=== PATIENT | female | born 2000 | race Caucasian/White ===

== ENCOUNTER 2024-08-20 15:53 | Outpatient (CLI) | payer SELFPAY ==
--- NOTE | 2024-08-20 15:30 | DI.RAD_ITS ---
Exam(s) XR ELBOW LT COMPLETE EXAM: XR ELBOW LT COMPLETE CLINICAL HISTORY: left elbow pain M25.522. TECHNIQUE: 2D digital imaging was performed. COMPARISON: No exams were available for comparison FINDINGS: 3 views No evidence of fracture or joint effusion and there is no swelling of the olecranon bursa. Radial he ad and neck unremarkable. Epicondyles unremarkable. Bone density normal. No osseous lesions IMPRESSION: No significant osseous findings in the elbow. DATA REPOSITORY: RADIATION DOSE DELIVERED:
--- NOTE | 2024-08-20 16:39 | DI.VRAD_ITS ---
PROCEDURE INFORMATION: Exam: XR Left Elbow Exam date and time: 08/20/2024 4:19 PM Age: 23 years old Clinical indication: Other: Fall, pain TECHNIQUE: Imaging protocol: Radiologic exam of the left elbow. Views: 3 or more views. COMPARISON: No relevant prior studies available. FINDINGS: Bones/joints: No acute fracture or dislocation. No suspicious osseous lesions. Articular structures unremarkable. No intra-articular effusion. Soft tissues: Soft tissues unremarkable. IMPRESSION: No acute findings. Dictated and Authenticated by: María Elena Barakat MD. Ordering:MIGUEL ANGEL Mcdowell MD
== END 2024-08-20 16:13 ==
PROVIDERS: Visit Provider Physician Assistant
DX: M25.522 Pain in left elbow (principal)
CPT/HCPCS: 73080

== ENCOUNTER 2025-06-04 01:32 | Emergency (ER) | payer SELFPAY ==
[2025-06-04 01:40] VITALS: BP 151/106; PULSE 107; RESP 20; O2SAT 100
--- NOTE | 2025-06-04 01:45 | RT.EKG_ITS ---
APPROVED REPORT Exam: Resting ECG Reason for Exam: overdose Patient Location: E HR:81 bpm ECG Measurements Heart Rate 81 AXIS GA 153 P 79 QRSd 102 QRS 79 QT 417 T 50 QTc 486 Conclusion Sinus rhythm...normal P axis, V-rate 60- 99 I have reviewed and interpreted ECG and agree with software generated interpretation.
[2025-06-04 01:57] VITALS: TEMP 36.8
--- NOTE | 2025-06-04 02:01 | ED.GENADUL_ITS ---
Discharge Plan Disposition Patient Disposition: Home Condition: Good Discharge Details Clinical Impression: Drug overdoses, Alcohol intoxication, Laceration of left forearm Primary Care Provider: Unknown,Unknown ED Provider: Peterson Arteaga Home Meds and New Rx's Prescriptions: No Action dextroamphetamine-amphetamine 20 mg capsule,extended release 24hr PO Patient Comments: take 1 capsule by mouth every morning escitalopram oxalate 10 mg tablet PO DAILY Patient Comments: take 1 tablet by mouth once daily phenazopyridine [Pyridium] 200 mg tablet 200 mg PO TID PRN (Reason: pain) Qty: 6 0RF Discharge Instructions Instructions: Accidental Overdose, Adult ED, Laceration Repair With Stitches ED Additional Instructions: Please abide by the safety plan that you have agreed upon in coordination with our mental health advocates. Please follow-up closely with your outpatient resources. At this time your lacerations have been sutured. Please keep the area clean and dry. Monitor closely for any redness, drainage or discharge. For nonabsorbable sutures, please return in 7 to 10 days to have the wound reassessed and the sutures removed. If you come back to the emergency department here it will be free of charge for the suture removal. For long-term scar cosmesis, please make sure to avoid any sun to the area for the next year. Apply moisturizer or vitamin E to the area twice daily for the next 12 months for the best chance of wound/scar medication. Please take a daily multivitamin as well as this can help in wound healing. If you notice any worsening of your symptoms, or any new symptoms such as vomiting, diarrhea, fever, chills, shortness of breath, chest pain, numbness, weakness, or fainting , please return immediately to the emergency department for reevaluation. Please follow up with your primary care provider as soon as possible for reassessment and reevaluation. As always, it was a pleasure participating in your medical care today. HPI General Date/Time Provider Initiated Documentation: 06/04/25 01:35 . HPI Narrative: 24-year-old female with a past medical history of depression, ADHD, presents today for evaluation of suicidal attempt. Patient states that last night about 45 minutes prior to arrival she had 4 drinks of vodka, and took 10 tablets roughly of her 10 mg Lexapro/escitalopram (100 mg total roughly). She then cut her left forearm somewhat deeply with a knife, as well as the left anterior thigh superficially. She states that she immediately regretted what she did, and she does not want to hurt herself or end her life. She came in tonight because it kept bleeding on her left forearm. She denies any other complaints at this time. She denies taking any other or additional medications. She denies attempting this in the past. She states that she has multiple stressors including being a single mom of 2 children. No other complaints at this time. She denies any auditory or visual hallucinations. No other modifying factors. Related Data Home Medications ?Medication ?Instructions ?Recorded ?Confirmed dextroamphetamine-amphetamine ER PO 08/20/24 08/20/24 20 mg 24hr capsule,extend release escitalopram oxalate 10 mg tablet mg PO DAILY 08/20/24 08/20/24 phenazopyridine 200 mg tablet 200 mg PO TID PRN pain 6 doses #6 08/20/24 08/20/24 (Pyridium) tabs Previous Rx's ?Medication ?Instructions ?Recorded phenazopyridine 200 mg tablet 200 mg PO TID PRN pain 6 doses #6 08/20/24 (Pyridium) tabs Allergies Allergy/AdvReac Type Severity Reaction Status Date / Time No Known Allergies Allergy Unverified 08/20/24 14:59 General Stated Complaint: PsychEval DEREJE: 2 Exam Narrative Exam Narrative: 1.Const: Well-nourished, Well-developed, appearing stated age 2.Eyes: PERRL, no conjunctival injection, and symmetrical lids. 3.ENT: Atraumatic external nose and ears. Moist MM. Neck: Symmetric, trachea midline, No thyromegaly. 4.CVS: +S1/S2, Peripheral pulses 2+ and equal in all extremities. Brisk capillary refill in all extremities. 5.RESP: Unlabored respiratory effort. Clear to auscultation bilaterally. No wheezes rales or rhonchi 6.GI: Soft, Nontender/Nondistended, No hepatosplenomegaly. No guarding or rebound. 7.MSK: Normocephalic/Atraumatic, Extremities w/o deformity or ttp No cyanosis or clubbing, Normal movement of all extremities 8.Skin: Left forearm demonstrates 2 deep and 1 superficial lacerations, each of the deep lacerations are roughly 3-1/2 to 4 cm. Superficial 1 is 3 cm. Patient's left anterior thigh demonstrates 3 superficial abrasions/lacerations, none of which require suturing, that are roughly 6 cm in width. No active bleeding 9.Neuro: interior specialist II-XII grossly intact. Sensation grossly intact, no focal neurologic deficits. 10.Psych: (AAO) x3. Appropriate mood and affect, but mildly intoxicated Course Vital Signs Vital signs: Vital Signs Pulse 107 H 06/04/25 01:40 Respiratory Rate 20 06/04/25 01:40 Blood Pressure 151/106 H 06/04/25 01:40 Pulse Oximetry 100 06/04/25 01:40 Temperature 36.8 C 06/04/25 01:57 Temperature Source Oral 06/04/25 01:57 Pulse 107 H 06/04/25 01:40 Respiratory Rate 20 06/04/25 01:40 Blood Pressure 151/106 H 06/04/25 01:40 Blood Pressure Position Sitting 06/04/25 01:40 Pulse Oximetry 100 06/04/25 01:40 Oxygen Delivery Method Room Air 06/04/25 01:40 Oxygen Flow Rate 0 06/04/25 01:40 Procedure Laceration Laceration 1: Date of Procedure: 06/04/25 Time of procedure: 03:24 Provider that performed the procedure: Peterson R Chandler Standard Time Out Performed: Yes Patient Consented: Verbally Site: upper extremity Side (If applicable): left Description: linear Depth: simple, single layer Local anesthetic: Lidocaine 1% Amount of anesthesia used (mL): 2 Pre-repair:: wound explored, irrigated extensively and deep structures intact Skin layer closed with: nylon Suture size: 5-0 Number of sutures:: 3 Technique: simple, interrupted Laceration 2: Date of Procedure: 06/04/25 Time of procedure: 03:25 Provider that performed the procedure: Peterson R Chandler Standard Time Out Performed: Yes Patient Consented: Verbally Site: upper extremity Side (If applicable): left Description: linear Depth: simple, single layer Local anesthetic: Lidocaine 1% Amount of anesthesia used (mL): 3 Pre-repair:: wound explored, irrigated extensively and deep structures intact Skin layer closed with: nylon Suture size: 5-0 Number of sutures:: 5 Technique: simple, interrupted Laceration 3: Date of Procedure: 06/04/25 Time of procedure: 03:26 Provider that performed the procedure: Peterson Arteaga Standard Time Out Performed: Yes Patient Consented: Verbally Site: upper extremity Side (If applicable): left Description: linear Depth: simple, single layer Amount of anesthesia used (mL): 2 Pre-repair:: wound explored, irrigated extensively and deep structures intact Skin layer closed with: nylon Suture size: 5-0 Number of sutures:: 5 Technique: simple, interrupted Medical Decision Making 24-year-old female with a past medical history of depression, ADHD, presents today for evaluation of suicidal attempt. Patient states that last night about 45 minutes prior to arrival she had 4 drinks of vodka, and took 10 tablets roughly of her 10 mg Lexapro/escitalopram (100 mg total roughly). She then cut her left forearm somewhat deeply with a knife, as well as the left anterior thigh superficially. She states that she immediately regretted what she did, and she does not want to hurt herself or end her life. She came in tonight because it kept bleeding on her left forearm. She denies any other complaints at this time. She denies taking any other or additional medications. She denies attempting this in the past. She states that she has multiple stressors including being a single mom of 2 children. No other complaints at this time. She denies any auditory or visual hallucinations. No other modifying factors. Exam demonstrates well-appearing female, Left forearm demonstrates 2 deep and 1 superficial lacerations, each of the deep lacerations are roughly 3-1/2 to 4 cm. Superficial 1 is 3 cm. Patient's left anterior thigh demonstrates 3 superficial abrasions/lacerations, none of which require suturing, that are roughly 6 cm in width. No active bleeding. We will confirm tetanus status, we will suture the lacerations. We did contact poison control, and patient did take a high dose of her Lexapro, but not high enough that we would expect to see any severe symptomatology to suggest serotonin syndrome. At this time she has no hyperreflexia, fever, or other significant abnormality aside from mild tachycardia. We will wait till the patient achieves sobriety, and then have her assessed by mental health. Will monitor closely and reassess. 7:35 AM Patient has been reassessed, she is feeling well. She is medically cleared at this stage, and shows no signs of significant alcohol intoxication, altered mental status, or significant effect from the escitalopram overdose. Patient continues to regret what happened, and he does not express any homicidal or suicidal ideations. Patient's lacerations were sutured, with 13 total sutures. Patient tolerated this well. We are pending mental health evaluation at this time. Patient will be signed out to my colleague for follow-up with them. PFSH All Active Problems (Updated 06/04/25 @ 07:40 by Peterson Arteaga DO) Laceration of left forearm (Acute) Alcohol intoxication (Acute) Drug overdoses (Acute) Medical History Proteinuria Fibroadenoma of left breast Vision problem WEARS GLASSES Surgical History LEFT KNEE SURGERY LEFT BREAST SURGERY Family History Mother Asthma Father Healthy adult on routine physical examination Other Diabetes paternal cousins Essential hypertension PGGM Heart disease PGGM Myocardial infarction PG Social History Smoking/Tobacco Use Status: Never Smoking risk assessment performed?: Yes Drug use: Never PAWSS Have you Been Recently Intoxicated or Drunk Within the Last 30 days?: Yes Have you Ever Experienced Previous Episodes of Alcohol Withdrawal?: No Have you ever Experienced Withdrawal Seizures?: No Have you ever Experienced Delirium Tremens(DT)s?: No Have you ever undergone Alcohol Rehabilitation Treatment (i.e, inpt ot outpatient treatment programs)?: No Have you ever Experienced Blackouts?: No Have you ever Combined Alcohol with other Downers within the last 90 days?: No Have you ever Combined Alcohol with any other Substance of Abuse during the last 90 days?: No Positive Blood Alcohol level on Presentation? [PCS.BAL]: No Evidence of Increased Autonomic Activity (i.e. HR>120, tremor, sweating, agitation, nausea)?: No Result: 1
[2025-06-04] MEDS: Lactated Ringers 1,000 ML 1000 ML IV (02:14)
[2025-06-04] MEDS: Lidocaine/Epinephri/Tetracaine Topical Gel 3 ML TP (02:14)
[2025-06-04 02:29] LABS: Glucose Negative (Negative)
[2025-06-04 02:31] LABS: Abs Immature Grans 0.02 10^3/uL (0.0-0.06); HCT 37.7 % (36.0-46.0); HGB 13.0 g/dL (11.2-15.7); Immature Grans % 0.2 %; MCH 31.0 pg (27.0-33.0); MCHC 34.5 % (32.0-36.0); MCV 90 fL (80-95); MPV 9.6 fL (8.0-11.0); Platelet Count 332 10^3/uL (130-400); RBC 4.19 10^6/uL (3.93-5.22); RDW 12.6 % (11.7-14.6); RDW-SD 41.7 fL; WBC 9.90 10^3/uL (4.4-10.8)
[2025-06-04 02:32] LABS: C & S Indicated? No; WBC Negative HPF (0-5)
[2025-06-04 02:53] LABS: Salicylate < 2.8 mg/dL (<2.8)
[2025-06-04 02:54] LABS: ALT 43 U/L (14-59); AST 40 U/L (15-37); Acetaminophen < 2 ug/mL (10-30); Albumin 4.4 g/dL (3.4-5.0); Alkaline Phosphatase 75 U/L (46-116); Anion Gap 11.5 mmol/L (3-11); BUN 11 mg/dL (7-18); Bilirubin, Total 0.7 mg/dL (0.2-1.0); CO2 26.5 mmol/L (21.0-32.0); Calcium 9.2 mg/dL (8.5-10.1); Chloride 97 mmol/L (98-107); Estimated GFR 79.68 (mL/min/1.73m2); Glucose 84 mg/dL (74-106); Potassium 3.5 mmol/L (3.5-5.1); Sodium 135 mmol/L (136-145); TSH (W/Ref FT4) 2.66 uIU/mL (0.36-3.74); Total Protein 7.9 g/dL (6.4-8.2)
[2025-06-04 02:55] LABS: Cannabinoids THC Negative (Negative); METHADONE URINE SCREEN Negative (Negative)
[2025-06-04 07:35] VITALS: BP 108/67; PULSE 71; RESP 18; O2SAT 98
--- NOTE | 2025-06-04 07:46 | ED.PSYCHBOAR ---
Date of service: 06/04/25 Time of Service: 07:46 Psychiatric Border Handoff Update Brief Story: 24-year-old female presented for self-harm multiple superficial self-inflicted lacerations, and intentional overdose of prescribed Lexapro. Psychiatric was treated medically cleared overnight. Currently pending behavioral health evaluation to determine disposition. Behavioral Concerns: Recent self-harm. Potential Disposition: Outpatient versus inpatient Barriers to Disposition: Bed search. Medical Concerns: None at this time Future to do Items: Follow-up with Maria Teresa for recommendations regarding disposition and management. Discharge Plan Disposition Patient Disposition: Home Condition: Good Discharge Details Clinical Impression: Drug overdoses, Alcohol intoxication, Laceration of left forearm Primary Care Provider: Unknown,Unknown ED Provider: Hector Restrepo Home Meds and New Rx's Prescriptions: No Action dextroamphetamine-amphetamine 20 mg capsule,extended release 24hr PO Patient Comments: take 1 capsule by mouth every morning escitalopram oxalate 10 mg tablet PO DAILY Patient Comments: take 1 tablet by mouth once daily phenazopyridine [Pyridium] 200 mg tablet 200 mg PO TID PRN (Reason: pain) Qty: 6 0RF Discharge Instructions Instructions: Accidental Overdose, Adult ED, Laceration Repair With Stitches ED Additional Instructions: Please abide by the safety plan that you have agreed upon in coordination with our mental health advocates. Please follow-up closely with your outpatient resources. At this time your lacerations have been sutured. Please keep the area clean and dry. Monitor closely for any redness, drainage or discharge. For nonabsorbable sutures, please return in 7 to 10 days to have the wound reassessed and the sutures removed. If you come back to the emergency department here it will be free of charge for the suture removal. For long-term scar cosmesis, please make sure to avoid any sun to the area for the next year. Apply moisturizer or vitamin E to the area twice daily for the next 12 months for the best chance of wound/scar medication. Please take a daily multivitamin as well as this can help in wound healing. If you notice any worsening of your symptoms, or any new symptoms such as vomiting, diarrhea, fever, chills, shortness of breath, chest pain, numbness, weakness, or fainting , please return immediately to the emergency department for reevaluation. Please follow up with your primary care provider as soon as possible for reassessment and reevaluation. As always, it was a pleasure participating in your medical care today. Course Consultations Consultation #1: Case discussed with behavioral health for present patient safety plan, cleared for discharge, follow-up with outpatient resources. Vital Signs Vital signs: Vital Signs Pulse 107 H 06/04/25 01:40 Respiratory Rate 20 06/04/25 01:40 Blood Pressure 151/106 H 06/04/25 01:40 Pulse Oximetry 100 06/04/25 01:40 Temperature 36.8 C 06/04/25 01:57 Temperature Source Oral 06/04/25 01:57 Pulse 71 06/04/25 07:35 Respiratory Rate 18 06/04/25 07:35 Blood Pressure 108/67 06/04/25 07:35 Blood Pressure Mean 80 06/04/25 07:35 Blood Pressure Position Sitting 06/04/25 01:40 Pulse Oximetry 98 06/04/25 07:35 Oxygen Delivery Method Room Air 06/04/25 07:35 Oxygen Flow Rate 0 06/04/25 07:35 Lab/Test Results Lab/Test Results: Laboratory Tests Range/Units 06/04/25 02:15 WBC (4.4-10.8) 10^3/uL 9.90 RBC (3.93-5.22) 10^6/uL 4.19 Hgb (11.2-15.7) g/dL 13.0 Hct (36.0-46.0) % 37.7 MCV (80-95) fL 90 MCH (27.0-33.0) pg 31.0 MCHC (32.0-36.0) % 34.5 RDW (11.7-14.6) % 12.6 Plt Count (130-400) 10^3/uL 332 MPV (8.0-11.0) fL 9.6 Immature Gran % % 0.2 Neutrophils % % 65.7 Lymphocytes % % 25.3 Monocytes % % 6.9 Eosinophils % % 1.6 Basophils % % 0.3 Nucleated RBC % (0.0-0.3) % 0.0 Absolute Neutrophils (1.2-6.7) 10^3/uL 6.51 Absolute Lymphocytes (1.2-3.4) 10^3/uL 2.50 Absolute Monocytes (0.1-0.8) 10^3/uL 0.68 Absolute Eosinophils (0.0-0.7) 10^3/uL 0.16 Absolute Basophils (0.0-0.2) 10^3/uL 0.03 VBG Lactate (<or=2.0) mmol/L 1.9 Sodium (136-145) mmol/L 135 L Potassium (3.5-5.1) mmol/L 3.5 Chloride (98-107) mmol/L 97 L Carbon Dioxide (21.0-32.0) mmol/L 26.5 Anion Gap (3-11) mmol/L 11.5 H BUN (7-18) mg/dL 11 Creatinine (0.55-1.02) mg/dL 1.0 Est GFR (CKD-EPI 2020) (mL/min/1.73m2) 79.68 Glucose (74-106) mg/dL 84 Calcium (8.5-10.1) mg/dL 9.2 Total Bilirubin (0.2-1.0) mg/dL 0.7 AST (15-37) U/L 40 H ALT (14-59) U/L 43 Alkaline Phosphatase (46-116) U/L 75 Total Protein (6.4-8.2) g/dL 7.9 Albumin (3.4-5.0) g/dL 4.4 TSH (0.36-3.74) uIU/mL 2.66 Urine Color (Yellow) Yellow Urine Clarity (Clear) Clear Urine pH (5-8) 7.0 Ur Specific [place] (1.005-1.025) 1.015 Urine Protein (Neg-Trace) mg/dL Negative Urine Ketones (Negative) mg/dL Negative Urine Blood (Negative) Moderate H Urine Nitrite (Negative) Negative Urine Bilirubin (Negative) Negative Urine Urobilinogen (Up to 0.2) mg/dL 0.2 Ur Leukocyte Esterase (Negative) Negative Urine RBC (0-2) HPF 3-5 H Urine WBC (0-5) HPF Negative Ur Epithelial Cells (Negative) HPF Rare Urine Crystals (Negative) HPF Negative Urine Bacteria (Negative) HPF Rare Urine Casts (Negative) LPF Negative Urine Mucus (Negative) Negative Ur Culture Indicated? No Urine Glucose (Negative) mg/dL Negative Salicylates (<2.8) mg/dL < 2.8 Urine Opiates Screen (Negative) Negative Urine Methadone Screen (Negative) Negative Acetaminophen (10-30) ug/mL < 2 Ur Barbiturates Screen (Negative) Negative Ur Tricyclics Screen (Negative) Negative Ur Amphetamines Screen (Negative) Negative U Benzodiazepines Scrn (Negative) Negative Urine Cocaine Screen (Negative) Negative Ur THC Screen (Negative) Negative Ethyl Alcohol (<10) mg/dL 161.3 H
--- NOTE | 2025-06-04 09:00 | CMSP_ITS ---
Care Management Safety Plan Status Status: Interim Reason for Wait Reason for Wait: Assessment/Screening Safety Plan Safety Plan: CM will respond to ED to assess patient after patient has been medically cleared and assessed by screener. If screener deems patient meets criteria for psychiatric stabilization CM will facilitate interdepartmental huddle with [facility] screener for safety planning considerations and meet with patient to review [facility] policy and safety plan, establish individual wishes for treatment and maintain patient rights. In the interim; please note safety plan below to guide patient care while awaiting further assessment in the ED.? SAFETY PLAN: 1. Will remain on suicide precautions and in paper clothes.? 2. Will remain in room under direct supervision of one-on-one staff at all times provided by ERIC, [employer] yard worker. 3. May have paper cups, plates, finger foods as well as a cardboard spoon with which to eat meals. 4. Follow [facility] Management of the Admitted Behavioral Health Patient policy. 5. Comfort bath system only. 6. No personal belongings 7. No visitors. 8. Phone contact limited to?.. 9. Due to VOLUNTARY status, if patient wishes to leave [facility], staff will contact [facility] Crisis Screener ([phone]) and On-Call Clinching Machine Operator ([phone]) as soon as possible. In the event of elopement, notify [facility] Police ([phone]). ? If deemed appropriate for inpatient psychiatric care, safety plan will be established with patient, and care team, to adhere to patient goals, identify restrictions based on behavioral status, address nutrition, and determine allowed personal belongings, tools for hygiene and personal care. As well plan will determine level of activity including ambulation, level of supervision, v isitors, and determine privileges based on level of acuity, behaviors and level of engagement by patient.
--- NOTE | 2025-06-04 12:09 | PDOC.MHCN_ITS ---
Date of service: 06/04/25 Time of Service: 08:05 PHQ-9 Over the last 2 weeks, how often have you been bothered by any of the following problems? 1. Little interest or pleasure in doing things: several days 2. Feeling down, depressed, or hopeless: several days 3. Trouble falling or staying asleep, or sleeping too much: several days 4. Feeling tired or having little energy: several days 5. Poor appetite or overeating: several days 6. Feeling bad about yourself - or that you are a failure or have let yourself and your family down: several days 7. Trouble concentrating on things, such as reading the newspaper or watching television: not at all 8. Moving or speaking so slowly that other people could have noticed? - Or the opposite - being so fidgety or restless that you have been moving around a lot more than usual: not at all 9. Thoughts that you would be better off or of hurting yourself in some way: several days Total score: 7 If you checked off any problems, how difficult have these problems made it for you to do your work, take care of things at home, or get along with other people?: not difficult at all PHQ-9 Results: Positive Source: Developed by Drs. Gary Sampson, Monica Jeong, Wilfredo Nguyen and colleagues, with an educational morgan from [employer]. Suicide Severity Rate CSSRS Have you wished you were or wished you could go to sleep and not wake up?: Yes Have you actually had any thoughts of killing yourself?: No CSSRS2 Have you been thinking about how you might do this?: No Have you had these thoughts and had some intention of acting on them?: No Have you started to work out or worked out the details of how to kill yourself? Do you intend to carry out this plan?: No CSSRS3 Have you ever done anything, started to do anything or prepared to do anything to end your life?: No CSSRS4 Was this within the past three months?: No Screening Score Total Score: 2 Screening: Positive Mental Health Emergency Note Release NK release signed:: Yes Reason for Visit The client is unknown to [facility]. Per report of the client she is not currently connected to outpatient supports and has never been hospitalized for her mental health. Last evening the client presented to [facility] ED under the influence of alcohol and NSSI to her left forearm. This morning the client is clinically sober. This underwriter solicitation director assesses the client face to face at [facility] ED. In the last 2 weeks has the pt presented for ES prior to today?: No Client Information Client is: New Well Housed: Yes Non Suicidal Self Injury Current: Yes, superficial cuts to left forearm History: No Safety Risk/Harm to Self or Others Current Ideation to Harm Self or Others: No Risk: Does risk to harm exist?: No Duty to warn indicated: No Asssessment/Mental Status Appearance: Disheveled Attitude: Cooperative and Guarded Behavior: Unremarkable Speech: Normal Affect: Flat and Cogruent with mood Mood: Anxious Thought process: Goal directed Hallucinations: No Delusions: No Attention: Unremarkable Perception: Not impaired Orientation: Fully orientated Memory: Intact Insight: Good Judgement: Good Neurovegetative Symptoms Sleep: No change Appetitie: No change Interests: No change Energy: No change Libido: Not applicable Substance Use: ETOH dependence Do you use nicotine?: No Have you used substances in the last 7 days?: yes, Alcohol and marijuana last evening Additional Issues: Assaultive/Threatening Behavior: No Medical Concerns: No Client engaged in active self harm w/weapon: No Threatening to run away: No Child reported abuse/neglect: No Voluntarily presenting for services: Yes Domestic violence is a concern: No Extreme Psychosis or extreme behavior is present: No Impression The client is a single 24 y.o female that resides in a rental in [place], [place]. The client identifies as female and uses she/ her pronouns. 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 All screening tools are completed and all under represented categories are honored. The client presents laying down in the hospital mood dressed in proper paper hospital attire. The client engages with the assessment, although she appears to be guarded at times giving one word answers. The client is showing good insight and judgement into what occurred last night and reports: I was stupid I made an impulse mistake and I would never ever do anything like that again. The client reports that her two daughters age 5 and 2 are her biggest deterrents. The client reports at baseline poor appetite and sleep. The client denies current SI/ HI as well as intent and plan. All options are discussed with the client including inpatient, hospital diversion, and outpatient. The client agrees to least restrictive and is agre eable to safety plan. Plan/Disposition Recommended Disposition: PCP/Office visit. Plan: Pro-active safety plan in place with the client. The client does not wish to pursue a higher level of care at this time. The client will check in with [facility] ES via phone at 1p on 06/06 and will think about a referral to outpatient services. The client is provided with [facility] phone number, [phone], and information on the front porch. Person reported agreement to plan: Yes Reports/communication Outcome discussed with: ED/Personnel (Verbal given to ED provider Dr. Restrepo)
--- NOTE | 2025-06-04 14:23 | NUR.NOTE ---
Nursing Note: Poison control called asking questions about pt's symptoms, VS and discharge. So they could close out their chart
--- NOTE | 2025-06-04 14:33 | CMPROGNOTE_ITS ---
Date of service: 06/04/25 Time of Service: 10:00 Care Management Progress Note Progress Note Text Progress Note Text: Jarek was screened by [facility] composite worker in the ED, once she was medically cleared. She did not indicate any SI/HI and was discharged home on a safety plan. She is to f/u with a phone call to [facility] on 06/06, and connect with her PCP for a f/u visit. Social Determinants of Health Screening Will the Patient Participate in the Screening?: Declined to provide
== END 2025-06-04 09:27 | disposition home or self-care (01) ==
PROVIDERS: Student in an Organized Health Care Education/Training Program; Emergency Provider General Practice
DX: F10.920 Alcohol use, unspecified with intoxication, uncomplicated (principal); S51.812A Laceration without foreign body of left forearm, initial encounter; T43.221A Poisoning by selective serotonin reuptake inhibitors, accidental (unintentional), initial encounter; R45.88 Nonsuicidal self-harm; S71.112A Laceration without foreign body, left thigh, initial encounter; X78.1XXA Intentional self-harm by knife, initial encounter
CPT/HCPCS: 99285 ×2; 12004; 00123; 80053; 80307; 93005; 96127; 96360; 96361; 80320; 80329; 81003; 81015; 83605; 84443; 85025; 93010

== ENCOUNTER 2025-06-12 16:46 | Emergency (ER) | payer SELFPAY ==
[2025-06-12 16:50] VITALS: BP 136/95; PULSE 119; RESP 16; TEMP 37.2; O2SAT 99
--- NOTE | 2025-06-12 16:50 | W.ED.GENAD ---
Discharge Plan Disposition Patient Disposition: Home Discharge Details Clinical Impression: Encounter for removal of sutures Primary Care Provider: Unknown,Unknown ED Provider: Hector Restrepo Home Meds and New Rx's Prescriptions: Continued dextroamphetamine-amphetamine 20 mg capsule,extended release 24hr 20 mg PO DAILY Patient Comments: take 1 capsule by mouth every morning escitalopram oxalate 10 mg tablet 10 mg PO DAILY Patient Comments: take 1 tablet by mouth once daily phenazopyridine [Pyridium] 200 mg tablet 200 mg PO TID PRN (Reason: pain) Qty: 6 0RF drospirenone-ethinyl estradiol [Loryna (28)] 3-0.02 mg tablet 1 tab PO DAILY Patient Comments: TAKE ONE TABLET BY MOUTH EVERY DAY dextroamphetamine-amphetamine 10 mg tablet 10 mg PO DAILY Patient Comments: TAKE ONE TABLET BY MOUTH EVERY DAY AT LUNCH Discharge Instructions Instructions: Stitches Removal Additional Instructions: Please follow-up with your primary care provider regarding your visit to the emergency department today. Be sure to discuss results of all test performed here today to include radiology, and laboratory testing as well as results for any pending cultures. Should your symptoms worsen, or if you develop new concerning symptoms, please return immediately emergency department for further evaluation. HPI General Date/Time Provider Initiated Documentation: 06/12/25 16:48. HPI Narrative: MDM/Narrative: 24-year-old female presenting for suture removal. No discharge, pain, fever. Sutures removed without complications. Advised to avoid direct sunlight to prevent scarring. Discharged home. This document was created with assistance from [employer]ed Cooking [employer]. The patient consented to its use. Disposition: Home HPI: The patient, a 24-year-old female, presents for the removal of sutures. She reports improvement in her condition with no indications of infection, such as purulent discharge, pain, or pyrexia. The patient attempted self-removal of the sutures but was hindered by limited wrist mobility. She has been informed about scar prevention measures by Dr. Arteaga. ROS: Negative besides as mentioned above Exam: Vital signs: Reviewed. General Appearance: Alert and oriented. No acute distress. HEENT: NCAT, EOMI, not icteric. External ears normal. No rhinorrhea. Moist mucous membranes. Neck: Supple, full range of motion, no observable masses, No meningeal sign. Respiratory: No Respiratory distress. No tachypnea. Cardiovascular: RRR, no edema. Gastrointestinal: Soft, nondistended, No rebound tenderness. Back: No midline tenderness to palpation or palpable step-offs of the C/T/L spine. Skin: 3 well-healed clean dry and intact linear lacerations to the anterior surface of the distal left forearm. No signs of infection. Neurological: Normal Gait, Grossly intact. Psychiatric: Appropriate for situation. Related Data Home Medications ?Medication ?Instructions ?Recorded ?Confirmed dextroamphetamine-amphetamine ER 20 mg PO DAILY 08/20/24 06/12/25 20 mg 24hr capsule,extend release escitalopram oxalate 10 mg tablet 10 mg PO DAILY 08/20/24 06/12/25 phenazopyridine 200 mg tablet 200 mg PO TID PRN pain 6 doses #6 08/20/24 06/12/25 (Pyridium) tabs dextroamphetamine-amphetamine 10 10 mg PO DAILY 06/12/25 06/12/25 mg tablet drospirenone 3 mg-ethinyl 1 tab PO DAILY 06/12/25 06/12/25 estradiol 0.02 mg tablet (Loryna (28)) Previous Rx's ?Medication ?Instructions ?Recorded phenazopyridine 200 mg tablet 200 mg PO TID PRN pain 6 doses #6 08/20/24 (Pyridium) tabs Allergies Allergy/AdvReac Type Severity Reaction Status Date / Time bupropion (From Wellbutrin) Allergy Intermediate hallucinati Verified 06/12/25 16:59 on General DEREJE: 2 PFSH All Active Problems (Updated 06/12/25 @ 17:33 by Hector Restrepo MD) Encounter for removal of sutures (Acute) Laceration of left forearm (Acute) Alcohol intoxication (Acute) Drug overdoses (Acute) Medical History Proteinuria Fibroadenoma of left breast Vision problem WEARS GLASSES Surgical History LEFT KNEE SURGERY LEFT BREAST SURGERY Family History Mother Asthma Father Healthy adult on routine physical examination Other Diabetes paternal cousins Essential hypertension PGGM Heart disease PGGM Myocardial infarction PGGM Social History Smoking/Tobacco Use Status: Current every day Tobacco Type: e-cigarettes Smoking risk assessment performed?: Yes Alcohol Intake: current Alcohol Intake frequency: a few times a week Alcohol type: beer Drug use: Daily Substance use type: marijuana
== END 2025-06-12 17:41 | disposition home or self-care (01) ==
LOC: ER 17:44
PROVIDERS: Emergency Provider General Practice
DX: Z48.02 Encounter for removal of sutures (principal)